=== PATIENT | female | born 1980 | race Caucasian/White ===

== ENCOUNTER 2016-11-17 10:11 | Emergency (ER) | payer OTHER ==
[2016-11-17 10:17] VITALS: BP 124/76; PULSE 61; TEMP 98.3; BMI 28.0
--- NOTE | 2016-11-17 11:37 | PDOC ---
History of Present Illness - General Chief Complaint: Headache Stated Complaint: LIGHTHEADED Time Seen by Provider: 11/17/16 11:00 History Source: Patient Exam Limitations: No Limitations - History of Present Illness Initial Comments: 11/17/16 11:32 36 yr female c/o headache for one day. Pt states she pulled a tick of her neck 2 days ago and googled lyme disease, then started to have a headache. Pt states the bug was alive and easy to remove when she pulled it out. no fever or chills , no abd pain, no headache now. Past History - Past Medical History Allergies/Adverse Reactions: Allergies Allergy/AdvReac Type Severity Reaction Status Date / Time No Known Allergies Allergy Verified 11/17/16 10:17 Home Medications: Ambulatory Orders NK [No Known Home Medication] 11/17/16 Other medical history: Osteoarthritis - Psycho/Social/Smoking Cessation Hx Suicidal Ideation: No Smoking History: Never smoked Information on smoking cessation initiated: No Hx Alcohol Use: No Drug/Substance Use Hx: No Substance Use Type: None *Physical Exam - Vital Signs Last Vital Signs Temp Pulse Resp BP Pulse Ox 98.3 F 61 18 124/76 100 11/17/16 10:13 11/17/16 10:13 11/17/16 10:13 11/17/16 10:13 11/17/16 10:13 - Physical Exam General Appearance: Yes: Nourished, Appropriately Dressed HEENT: positive: EOMI, RIVKA, Normal ENT Inspection, TMs Normal, Pharynx Normal Neck: positive: Supple. negative: Lymphadenopathy (R), Lymphadenopathy (L) Respiratory/Chest: positive: Lungs Clear, Normal Breath Sounds Cardiovascular: positive: Regular Rhythm, Regular Rate Musculoskeletal: positive: Normal Inspection Extremity: positive: Normal Capillary Refill, Normal Inspection, Normal Range of Motion Integumentary: positive: Normal Color, Dry, Warm, Other (skin intact no evidence of bite mendoza ) Neurologic: positive: Fully Oriented, Alert, Normal Mood/Affect, Normal Response , Motor Strength 5/5, Finger to Nose (intact). negative: Facial Droop, Confused ED Treatment Course - ADDITIONAL ORDERS Additional order review: Laboratory Results 11/17/16 11:00 Urine HCG, Qual Negative Medical Decision Making - Medical Decision Making 11/17/16 11:44 cc: tick bite removed tick 48hrs ago tick was alive hardly bit into skin pt states (pt brought tic in a bag, is not engorged) easy to remove was alive [place] the [place]. does not meet criteria to give prophylactic lyme prevention meds pt currently denies headache or dizzyness will have pt follow with her PMD this week agrees with plan of care and dc plan *DC/Admit/Observation/Transfer Diagnosis at time of Disposition: Tick bite Qualifiers: Encounter type: initial encounter Qualified Code(s): W57.XXXA - Bitten or stung by nonvenomous insect and other nonvenomous arthropods, initial encounter - Discharge Dispostion Disposition: HOME Condition at time of disposition: Good - Referrals Referrals: Nichol Love NP [Primary Care Provider] - - Patient Instructions Additional Instructions: follow with your doctor for follow up this week take tylenol as needed for any headache Return if any worsening symptoms
== END 2016-11-17 11:51 | disposition home or self-care (01) ==
LOC: JERFT 10:11
DX: W57.XXXA Bitten or stung by nonvenomous insect and other nonvenomous arthropods, initial encounter (principal); Y93.89 Activity, other specified; Y92.9 Unspecified place or not applicable
CPT/HCPCS: 84703; 99281-25

== ENCOUNTER 2017-07-03 12:55 | Emergency (ER) | payer OTHER ==
[2017-07-03 13:08] VITALS: TEMP 98.1; BMI 28.9
[2017-07-03 14:14] LABS: BASO % 0.3 % (0-2.0); EOS % 2.5 % (0-4.5); HEMATOCRIT 40.3 % (32.4-45.2); HEMOGLOBIN 13.4 GM/dL (10.7-15.3); LYMPH % 13.8 % (8-40); MCH 30.3 pg (25.7-33.7); MCHC 33.2 g/dl (32.0-36.0); MEAN CELL VOLUME 91.3 fl (80-96); MEAN PLT VOLUME 7.6 fl (7.5-11.1); MONO % 7.5 % (3.8-10.2); NEUT % 75.9 % (42.8-82.8); PLATELET COUNT 155 K/MM3 (134-434); RBC 4.41 M/mm3 (3.60-5.2); RDW 15.4 % (11.6-15.6); WHITE BLOOD COUNT 6.1 K/mm3 (4.0-10.0)
--- NOTE | 2017-07-03 14:15 | PDOC ---
History of Present Illness - General Chief Complaint: Pain Stated Complaint: ABDOMINAL PAIN 11WKS PREG Time Seen by Provider: 07/03/17 13:33 History Source: Patient Exam Limitations: No Limitations - History of Present Illness Initial Comments: 07/03/17 14:09 Patient is a 36F 11 wk with history of hypothyroidism and uterine fibroids is here today complaining of 2 days of lower abdominal pain and brown vaginal discharge. She denies history of STDs and deferred testing because she states that she was just tested as an outpatient. She states that she's 12 weeks by dates but has not had an ultrasound done yet. She says she was told to expect pain during this because of her fibroids. She denies nausea, vomiting, fevers, chills. Last two pregnancies were uncomplicated deliveries. Denies pain with urination. Past History - Past Medical History Allergies/Adverse Reactions: Allergies Allergy/AdvReac Type Severity Reaction Status Date / Time No Known Allergies Allergy Verified 11/17/16 10:17 Home Medications: Ambulatory Orders Levothyroxine Sodium [Levo-T] 50 mcg PO DAILY 07/03/17 ,Calc.40/Iron/Folate 1 [Pnv-Select Tablet] 1 each PO DAILY 07/03/17 Anemia: Yes COPD: No - Reproductive History Is Patient Now?: Yes (#): 3 Para: 2 - Immunization History Immunization Up to Date: Yes - Suicide/Smoking/Psychosocial Hx Smoking History: Never smoked Hx Alcohol Use: No Drug/Substance Use Hx: No Substance Use Type: None Review of Systems - Review of Systems Comments:: 07/03/17 14:13 GENERAL/CONSTITUTIONAL: No fever or chills. No weakness. HEAD, EYES, EARS, NOSE AND THROAT: No change in vision. No sore throat. CARDIOVASCULAR: No chest pain or shortness of breath RESPIRATORY: No cough, wheezing, or hemoptysis. GASTROINTESTINAL: No nausea, vomiting, diarrhea or constipation. GENITOURINARY: No dysuria, frequency, or change in urination. MUSCULOSKELETAL: No joint or muscle swelling or pain. No neck or back pain. SKIN: No rash HEMATOLOGIC/LYMPHATIC: No anemia, easy bleeding, or history of blood clots. ALLERGIC/IMMUNOLOGIC: No hives or skin allergy. *Physical Exam - Vital Signs Last Vital Signs Temp Pulse Resp BP Pulse Ox 98.1 F 64 18 113/63 98 07/03/17 13:04 07/03/17 13:04 07/03/17 13:04 07/03/17 13:04 07/03/17 13:04 - Physical Exam Comments: 07/03/17 14:13 GENERAL: Awake, alert, and fully oriented, in no acute distress PELVIC: Normal external genitalia, closed cervical os, lumpy masses surrounding cervix, no adenxal masses, no CMT HEAD: No signs of trauma, normocephalic, atraumatic EYES: PERRLA, EOMI, sclera anicteric, conjunctiva clear ENT: Auricles normal inspection, hearing grossly normal, nares patent, oropharynx clear without exudates. Moist mucosa NECK: Normal ROM, supple, no lymphadenopathy, JVD, or masses LUNGS: No distress, speaks full sentences, clear to auscultation bilaterally HEART: Regular rate and rhythm, normal S1 and S2, no murmurs, rubs or gallops, peripheral pulses normal and equal bilaterally. ABDOMEN: Suprapubic tenderness with uterus consistent with 18wk , 2 cm below umbilicus. No guarding, no rebound. No masses EXTREMITIES: Normal inspection, Normal range of motion, no edema. No clubbing or cyanosis. NEUROLOGICAL: Cranial nerves II through XII grossly intact. Normal speech, normal gait, no focal sensorimotor deficits SKIN: Warm, Dry, normal turgor, no rashes or lesions noted. ED Treatment Course - LABORATORY CBC & Chemistry Diagram: 07/03/17 13:51 07/03/17 13:51 - RADIOLOGY Radiology Studies Ordered: Category Date Time Status TRANSVAGINAL US PREG [US] Stat Ultrasound 07/03/17 13:48 Ordered Medical Decision Making - Medical Decision Making 07/03/17 14:15 Patient is 36F with history of hypothyroidism here today with lower abdominal pain. Vital signs stable. Patient appears well. Physical exam shows likely uterine fibroids but is not suggestive of PID. Will attempt to confirm IUP with TVUS. Will evaluate further with CBC, CMP, T&S, UA, UC. Will rhogham for possible bloody discharge if Rh-. Patient is most likely a threatened AB. 07/03/17 15:43 Laboratory Tests 07/03/17 07/03/17 07/03/17 13:51 13:51 13:51 WBC 6.1 Hgb 13.4 Hct 40.3 Plt Count 155 INR 1.04 BUN Creatinine Beta HCG, Quant Urine Nitrite Ur Leukocyte Esterase Urine HCG, Qual Blood Type O POSITIVE 07/03/17 07/03/17 13:51 14:05 WBC Hgb Hct Plt Count INR BUN 6 L Creatinine 0.4 L Beta HCG, Quant 43630.8 Urine Nitrite Negative Ur Leukocyte Esterase Negative Urine HCG, Qual Positive Blood Type CBC normal. CMP reassuring. UA negative. BHCG positive to 63k. Blood type O+, no rhogam needed. Pending US to confirm IUP. 07/03/17 16:56 US shows IUP with multiple leiomyomas. Will discharge with OB follow up. Patient has threatened . *DC/Admit/Observation/Transfer Diagnosis at time of Disposition: Threatened affecting intrauterine - Discharge Dispostion Disposition: HOME Condition at time of disposition: Good Admit: No - Referrals Referrals: Anna Toussaint [Primary Care Provider] - - Patient Instructions Printed Discharge Instructions: DI for Threatened Additional Instructions: Please return if you have any new, worsening or concerning symptoms. Please follow up with your OBGYN this week. - Post Discharge Activity
[2017-07-03 14:21] LABS: HCG,QUALITATIVE URINE POSITIVE
[2017-07-03 14:23] LABS: URINE APPEARANCE CLEAR; URINE BILIRUBIN NEGATIVE (NEGATIVE); URINE BLOOD NEGATIVE (NEGATIVE); URINE COLOR YELLOW; URINE GLUCOSE (UA) NEGATIVE (NEGATIVE); URINE KETONE 1+ (NEGATIVE); URINE LEUK ESTERASE NEGATIVE (NEGATIVE); URINE NITRITE NEGATIVE (NEGATIVE); URINE PROTEIN NEGATIVE (NEGATIVE); URINE UROBILINOGEN NEGATIVE mg/dL (0.2-1.0)
[2017-07-03 14:26] LABS: INR 1.04 (0.82-1.09); PROTHROMBIN TIME (PATIENT) 11.7 SEC (9.98-11.88)
--- NOTE | 2017-07-03 14:49 | PDOC ---
Attending Attestation - Resident Resident Name: Tom Kapoor - ED Attending Attestation I have performed the following: I have examined & evaluated the patient, The case was reviewed & discussed with the resident, I agree w/resident's findings & plan, Exceptions are as noted - HPI HPI: 07/03/17 14:37 36-year-old female with past medical history of hypothyroidism, approximately 12 weeks presents with vaginal spotting since today. Reported some suprapubic cramping but denies dysuria. Came into the ED for evaluation. - Physicial Exam PE: 07/03/17 14:39 GENERAL: Awake, alert, and fully oriented, in no acute distress. HEAD: No signs of trauma EYES: PERRLA, EOMI, sclera anicteric, conjunctiva clear ENT: Auricles normal inspection, hearing grossly normal, nares patent, oropharynx clear without exudates. NECK: Normal ROM, supple, no lymphadenopathy, JVD, or masses LUNGS: Breath sounds equal, clear to auscultation bilaterally. No wheezes, and no crackles HEART: Regular rate and rhythm, normal S1 and S2, no murmurs, rubs or gallops ABDOMEN: Mildly TTP suprapubic. Soft, normoactive bowel sounds. No guarding, no rebound. No masses ADMITTANCE ATTENDANT: As per resident EXTREMITIES: Normal range of motion, no edema. No clubbing or cyanosis. No cords, erythema, or tenderness NEUROLOGICAL: Cranial nerves II through XII grossly intact. Normal speech, normal gait SKIN: Warm, Dry, normal turgor, no rashes or lesions noted. - Medical Decision Making 07/03/17 14:39 Vital Signs Temp Pulse Resp BP Pulse Ox 98.1 F 64 18 113/63 98 07/03/17 13:04 07/03/17 13:04 07/03/17 13:04 07/03/17 13:04 07/03/17 13:04 1st trimester vaginal bleed. Will need to r/o ectopic vs. miscarriage vs. threatened ab. Labs, including beta hcg and type and screen Transvaginal ultrasound. 07/03/17 15:44 CBC, BMP 07/03/17 13:51 07/03/17 13:51 CMP Sodium 139 mmol/L (136-145) 07/03/17 13:51 Potassium 3.9 mmol/L (3.5-5.1) 07/03/17 13:51 Chloride 106 mmol/L (98-107) 07/03/17 13:51 Carbon Dioxide 24 mmol/L (21-32) 07/03/17 13:51 Anion Gap 9 (8-16) 07/03/17 13:51 BUN 6 mg/dL (7-18) L 07/03/17 13:51 Creatinine 0.4 mg/dL (0.55-1.02) L 07/03/17 13:51 Creat Clearance w eGFR > 60 (>60) 07/03/17 13:51 Random Glucose 76 mg/dL (74-106) 07/03/17 13:51 Calcium 8.3 mg/dL (8.5-10.1) L 07/03/17 13:51 Total Bilirubin 0.7 mg/dL (0.2-1.0) 07/03/17 13:51 AST 16 U/L (15-37) 07/03/17 13:51 ALT 24 U/L (12-78) 07/03/17 13:51 Alkaline Phosphatase 82 U/L (45-117) 07/03/17 13:51 Total Protein 6.9 g/dl (6.4-8.2) 07/03/17 13:51 Albumin 2.9 g/dl (3.4-5.0) L 07/03/17 13:51 Beta HCG, Quant 28771.8 mIU/ml 07/03/17 13:51 Urine Test Results Urine Color Yellow 07/03/17 14:05 Urine Appearance Clear 07/03/17 14:05 Urine pH 7.0 (5.0-8.0) 07/03/17 14:05 Ur Specific [place] 1.012 (1.001-1.035) 07/03/17 14:05 Urine Protein Negative (NEGATIVE) 07/03/17 14:05 Urine Glucose (UA) Negative (NEGATIVE) 07/03/17 14:05 Urine Ketones 1+ (NEGATIVE) H 07/03/17 14:05 Urine Blood Negative (NEGATIVE) 07/03/17 14:05 Urine Nitrite Negative (NEGATIVE) 07/03/17 14:05 Urine Bilirubin Negative (NEGATIVE) 07/03/17 14:05 Ur Leukocyte Esterase Negative (NEGATIVE) 07/03/17 14:05 O positive. Pending ultrasound.
[2017-07-03 15:13] LABS: ALBUMIN 2.9 g/dl (3.4-5.0); ALK PHOS 82 U/L (45-117); ANION GAP 9 (8-16); BILIRUBIN,TOTAL 0.7 mg/dL (0.2-1.0); BLOOD UREA NITROGEN 6 mg/dL (7-18); CALCIUM 8.3 mg/dL (8.5-10.1); CHLORIDE 106 mmol/L (98-107); CO2 24 mmol/L (21-32); CREATININE 0.4 mg/dL (0.55-1.02); GLUCOSE,RANDOM 76 mg/dL (74-106); POTASSIUM 3.9 mmol/L (3.5-5.1); SGOT/AST 16 U/L (15-37); SGPT/ALT 24 U/L (12-78); SODIUM 139 mmol/L (136-145); TOT PROT 6.9 g/dl (6.4-8.2)
[2017-07-03] MEDS ORDERED: ACETAMINOPHEN 325 MG TABLET (FP) PO ONE (17:01)
[2017-07-03] MEDS ORDERED: ACETAMINOPHEN 325 MG TABLET (FP) ONE (17:09)
[2017-07-03 17:17] VITALS: BP 116/66; PULSE 78
== END 2017-07-03 17:15 | disposition home or self-care (01) ==
LOC: JER 12:55
DX: O26.891 Other specified pregnancy related conditions, first trimester (principal); O20.0 Threatened abortion; O34.11 Maternal care for benign tumor of corpus uteri, first trimester; D25.9 Leiomyoma of uterus, unspecified; Z3A.01 Less than 8 weeks gestation of pregnancy
CPT/HCPCS: 36415; 76801-TC; 80053; 81003; 84702; 84703; 85025; 85610; 86850; 86900; 86901; 87086; 99282-25